=== PATIENT | female | born 1970 | race Caucasian/White ===

== ENCOUNTER → 2017-03-25 | Outpatient (CLI) | payer MEDICAID ==
--- NOTE | 2017-03-25 10:35 | RADIOLOGY REPORT (SQ) ---
EXAM DESCRIPTION: ELBOW RIGHT >2 VIEWS COMPLETED DATE/TIME: 03/25/2017 10:26 am REASON FOR STUDY: PAIN IN RIGHT ELBOW R22.31 LOCALIZED SWELLING, MASS AND LUMP, RIGHT UPPER LIMB M2 5.521 PAIN IN RIGHT ELBOW COMPARISON: None. NUMBER OF VIEWS: Four views. TECHNIQUE: AP, lateral, and both oblique radiographic images acquired of the right elbow. LIMITATIONS: None. FINDINGS: MINERALIZATION: Normal. BONES: No acute fracture or dislocation. No worrisome bone lesions. JOINT: No effusion. SOFT TISSUES: No soft tissue swelling. No foreign body. OTHER: No other significant finding. IMPRESSION: NEGATIVE STUDY OF THE RIGHT ELBOW. NO RADIOGRAPHIC EVIDENCE OF ACUTE INJURY. TECHNICAL DOCUMENTATION: JOB ID: [id number] [employer]- All Rights Reserved
--- NOTE | 2017-03-27 15:44 | WOMENS IMAGING REPORT ---
EXAM DESCRIPTION: BILAT DIAGNOSTIC MAMMO W/CAD COMPLETED DATE/TIME: 03/25/2017 8:40 am REASON FOR STUDY: LOCALIZED SWELLING; R22.31 R22.31 LOCALIZED SWELLING, MASS AND LUMP, RIGHT UPPER LIMB COMPARISON: No outside films are available TECHNIQUE: Standard craniocaudal and mediolateral oblique views of each breast recorded using digita l acquisition. Additional "push-back" craniocaudal and mediolateral oblique images acquired. LIMITATIONS: None. FINDINGS: IMPLANTS: Bilateral subglandular implants. RIGHT BREAST MASSES: No suspicious masses. CALCIFICATIONS: No new or suspicious calcifications. ARCHITECTURAL DISTORTION: None. DEVELOPING DENSITY: None. ASYMMETRY: None noted. OTHER: No other significant findings. LEFT BREAST MASSES: No suspicious masses. CALCIFICATIONS: No new or suspicious calcifications. ARCHITECTURAL DISTORTION: None. DEVELOPING DENSITY: None. ASYMMETRY: None noted. OTHER: No other significant finding. Read with the assistance of CAD: .[facility] - R2 Cenova Version 1.3 .[facility] - R2 Cenova Version 1.3 .[facility] - R2 Cenova Version 2.4 .[facility] - R2 Cenova Version 2.4 .[facility] - R2 Sole Rougher Version 9.2 Patient indicates right breast pain on the intake form. Although no mammographic abnormalities are i dentified, in the setting of breast pain, breast ultrasound should be performed. IMPRESSION: No mammographic evidence for malignancy. Patient indicated right breast pain on her paperwork today. Ultrasound of the right breast in the ar ea pain is recommended for followup. BREAST DENSITY: c. The breasts are heterogeneously dense, which may obscure small masses. BIRAD: 0 Incomplete: Needs additional imaging evaluation with right breast ultrasound RECOMMENDATION: RECOMMENDED FOLLOW UP: Right breast ultrasound in the area of pain SPECIFIC INTERVENTION/IMAGING/CONSULTATION RECOMMENDED:Right breast ultrasound in the area of pain COMMUNICATION:Patient notified by letter. We will call the patient back for additional ultrasound ex am COMMENT: The patient has been notified of the results by letter per MQSA requirements. Additional no tification policies are in place for contacting patient with suspicious or incomplete findings. Quality ID #225: The [employer] recommends an annual screening mammogram for women aged 40 years or over. This facility utilizes a reminder system to ensure that all patients receive reminder letters, and/or direct phone calls for appointments. This includes reminders for routine scr eening mammograms, diagnostic mammograms, or other Breast Imaging Interventions when appropriate. Th is patient will be placed in the appropriate reminder system. The [employer] (ACR) has developed recommendations for screening MRI of the breast s in certain patient populations, to be used in conjunction with mammography. Breast MRI surveillanc e may be appropriate for women with more than 20% lifetime risk of developing breast cancer as deter mined by genetic testing, significant family history of the disease, or history of mantle radiation f or Hodgkins Disease. ACR Practice Guidelines 2008. TECHNICAL DOCUMENTATION: FINDING NUMBER: (1) ASSESSMENT: (1) JOB ID: [id number] [employer]- All Rights Reserved
== END ==
LOC: WI 08:03
PROVIDERS: ATTEND Physician Assistant
DX: M25.521 Pain in right elbow (principal); R22.31 Localized swelling, mass and lump, right upper limb
CPT/HCPCS: 73080; G0204; 77066

== ENCOUNTER → 2017-04-07 | Outpatient (CLI) | payer MEDICAID ==
--- NOTE | 2017-04-07 16:54 | WOMENS IMAGING REPORT ---
EXAM DESCRIPTION: U/S BREAST UNILATERAL, COMPL COMPLETED DATE/TIME: 04/07/2017 2:42 pm REASON FOR STUDY: MASTODYNIA; N64.4 N64.4 MASTODYNIA COMPARISON: Bilateral mammograms 03/25/2017 TECHNIQUE: Real-time and static grayscale imaging performed of the right breast targeted to the area of clinical Concern. Selected color Doppler images recorded. LIMITATIONS: None. FINDINGS: Patient states she has right breast pain in the retroareolar region. She is post multiple right breast surgeries including breast implants with revision, and breast lift with revision. 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 This i s the area of breast pain. Ultrasound of the right breast in the area of scar tissue along the nipple resection was performed. A small 7 mm x 6 mm cyst is present in the 6 o'clock position, probably benign finding with mild ecce ntric cyst wall thickening. Elsewhere in the right retroareolar region, an 8 mm cyst is present, josefa ign. At 10 mm complex cyst with low level internal echoes is also present. No dilated ducts. No wo rrisome acoustic absorption. IMPRESSION: Probably benign findings in the right breast in the area of pain. Several simple and co mplex cysts are present. Short interval follow-up repeat ultrasound in 6 months is recommended to ex clude growth or change BIRAD: 3 Probably benign finding. Initial short-interval follow-up suggested. RECOMMENDATION: RECOMMENDED FOLLOW-UP: Six-month follow-up right breast ultrasound recommended COMMENT: Patient notified by letter The [employer] (ACR) has developed recommendations for screening MRI of the breast s in certain patient populations, to be used in conjunction with mammography. Breast MRI surveillanc e may be appropriate for women with more than 20% lifetime risk of developing breast cancer as deter mined by genetic testing, significant family history of the disease, or history of mantle radiation f or Hodgkins Disease. ACR Practice Guidelines 2008. TECHNICAL DOCUMENTATION: JOB ID: [id number] [employer]- All Rights Reserved
== END ==
LOC: WI 14:09
PROVIDERS: ATTEND Physician Assistant
DX: N64.4 Mastodynia (principal)
CPT/HCPCS: 76641

== ENCOUNTER 2018-04-08 15:38 | Emergency (ER) | payer SELFPAY ==
[2018-04-08 16:09] VITALS: BP 150/86
[2018-04-08] MEDS ORDERED: LIDOCAINE 5% (700 MG) TRANSDERMAL ADH..PATCH TP ONE (17:24)
[2018-04-08] MEDS ORDERED: METHOCARBAMOL 750 MG TABLET PO ONE (17:24)
[2018-04-08] MEDS ORDERED: KETOROLAC TROMETHAMINE 60 MG/2 ML SDV IM ONE (17:24)
--- NOTE | 2018-04-08 17:44 | ER Document Report ---
HPI - HPI Time Seen by Provider: 04/08/18 17:08 Pain Level: 3 Notes: Patient is an otherwise healthy 47-year-old female who presents to the emergency department with complaints of posterior hip pain and right low back pain. Patient denies any fall or injury. 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 Denies any bowel incontinence, reports she is able to urinate without difficulty, denies any saddle anesthesia or fever. Past Medical History - General Information source: Patient - Social History Smoking Status: Never Smoker Family History: Reviewed & Not Pertinent - Medical History Medical History: Negative Surgical Hx: Negative - Immunizations Immunizations up to date: Yes Vertical Provider Document - CONSTITUTIONAL Notes: PHYSICAL EXAMINATION: GENERAL: Well-appearing, well-nourished and in no acute distress. HEAD: Atraumatic, normocephalic. EYES: Pupils equal round extraocular movements intact, conjunctiva are normal. ENT: Nares patent NECK: Normal range of motion LUNGS: No respiratory distress Musculoskeletal: Normal range of motion, tenderness to palpation to lumbar paraspinous muscles on the right side. Pain extends down into the buttock and hip. NEUROLOGICAL: Normal speech, ambulates with steady gait. PSYCH: Normal mood, normal affect. SKIN: Warm, Dry, normal turgor, no rashes or lesions noted. - INFECTION CONTROL TRAVEL OUTSIDE OF THE [place] IN LAST 30 DAYS: No Course - Re-evaluation Re-evalutation: Examination is consistent with musculoskeletal strain. Patient will be treated with muscle relaxers and lidocaine patches. Patient will be instructed to take anti-inflammatories. Patient to follow-up with primary care if not improving over the next several days. - Vital Signs Vital signs: Temp Pulse Resp BP Pulse Ox 97.5 F 66 16 150/86 H 100 04/08/18 16:05 04/08/18 16:05 04/08/18 16:05 04/08/18 16:05 04/08/18 16:05 Discharge - Discharge Clinical Impression: Musculoskeletal pain Condition: Stable Disposition: HOME, SELF-CARE Additional Instructions: Muscle Strain You have strained a muscle -- torn the fibers within the muscle. This often occurs with strenuous exertion, or during an injury that suddenly stretches the muscle. The seriousness of a strain varies. Some strains heal within days, others cause problems for months. X-rays cannot show a muscle strain. X-rays are taken only if symptoms suggest that a fracture could be present. The usual treatment of a muscle strain is rest and ice packs. Sometimes, a sling, splint, or crutches may be necessary to rest the muscle. The muscle can be used again once pain subsides. Severe strains require a special exercise and stretching program to prevent permanent stiffness and disability. Your doctor will advise you if this will be necessary. Call the doctor immediately if pain or swelling becomes severe, or if numbness or discoloration develop. Please take medications as prescribed. Take ibuprofen 600 mg every 6 hours. Call the primary care providers that I have recommended you to below. Try to schedule appointment with them for follow-up. Prescriptions: Lidocaine [Lidoderm 5% (700 mg) Transdermal Patch] 1 patch TP DAILY #30 adh..patch Methocarbamol [Robaxin 750 mg Tablet] 750 mg PO Q6H #40 tablet Referrals: CEFERINO COBB PA-C [Primary Care Provider] - Follow up as needed [facility] [Provider Group] - Follow up as needed [facility] [Provider Group] - Follow up as needed
== END 2018-04-08 17:50 | disposition home or self-care (01) ==
LOC: ER 15:38
DX: M79.10 Myalgia, unspecified site (principal); M25.551 Pain in right hip; M54.5 Low back pain
CPT/HCPCS: 99283; 96372; J1885; J3490

== ENCOUNTER 2020-02-15 17:45 | Emergency (ER) | payer BC ==
--- NOTE | 2020-02-15 18:20 | ER Document Report ---
ED Medical Screen (RME) - General Chief Complaint: Abdominal Pain Stated Complaint: ABDOMINAL PAIN Notes: Patient is a 49-year-old female with a past medical history significant for prior partial hysterectomy with 1 remaining ovary who presents today with complaints of lower abdominal pain that sharp and stabbing. She states is been underlying as a constant ache with intermittent episodes of sharp stabbing pains. Seems to worsen with straining for bowel movements or urination. States she is never had anything similar. Denies any nausea or vomiting. No fevers. Reports multiple sections in her history. Denies any fullness in the vagina or bladder area. I have treated and performed a rapid initial assessment of this patient. A comprehensive ED assessment and evaluation of the patient, analysis of test results and completion of medical decision making process will be conducted by additional ED providers. PHYSICAL EXAMINATION: GENERAL: Well-appearing, well-nourished and in no acute distress. A&Ox4. Answers questions appropriately. TRAVEL OUTSIDE OF THE [place] IN LAST 30 DAYS: No - Related Data Allergies/Adverse Reactions: penicillin V Allergy (Mild, Verified 04/08/18 17:09) sulfamethoxazole [From Bactrim] Allergy (Unknown, Verified 04/08/18 17:09) trimethoprim [From Bactrim] Allergy (Unknown, Verified 04/08/18 17:09) Past Medical History Renal/ Medical History: Denies: Hx Peritoneal Dialysis Past Surgical History: Reports: Hx Section, Hx Hysterectomy, Hx Orthopedic Surgery, Hx Tonsillectomy - Immunizations Immunizations up to date: Yes
[2020-02-15 18:53] LABS: ABSOLUTE BASOPHILS # (AUTO) 0.1 10^3/uL (0.0-0.2); ABSOLUTE EOSINOPHILS # (AUTO) 0.1 10^3/uL (0.0-0.6); ABSOLUTE LYMPHOCYTES (AUTO) 1.9 10^3/uL (0.5-4.7); ABSOLUTE MONOCYTES (AUTO) 0.6 10^3/uL (0.1-1.4); ABSOLUTE NEUT (AUTO) 4.1 10^3/uL (1.7-8.2); BASOPHILS % (AUTO) 0.8 % (0-2); EOSINOPHILS % (AUTO) 2.2 % (0-6); HEMATOCRIT 36.8 % (36.0-47.0); HEMOGLOBIN 12.7 g/dL (12.0-15.5); LYMPHOCYTES % (AUTO) 28.1 % (13-45); MEAN CORPUSCULAR HEMOGLOBIN 28.5 pg (27.0-33.4); MEAN CORPUSCULAR HGB CONC 34.5 g/dL (32.0-36.0); MEAN CORPUSCULAR VOLUME 83 fl (80-97); MONOCYTES % (AUTO) 8.5 % (3-13); PLATELET COUNT 321 10^3/uL (150-450); RED BLOOD COUNT 4.46 10^6/uL (3.72-5.28); SEGMENTED NEUTROPHILS % (AUTO) 60.4 % (42-78); TOTAL CELLS COUNTED % (AUTO) 100 %; WHITE BLOOD COUNT 6.8 10^3/uL (4.0-10.5)
[2020-02-15 19:19] LABS: ALBUMIN 4.7 g/dL (3.5-5.0); ALKALINE PHOSPHATASE 92 U/L (38-126); ANION GAP 10 (5-19); ASPARTATE AMINO TRANSFERASE 20 U/L (14-36); BILIRUBIN,DIRECT 0.3 mg/dL (0.0-0.4); BILIRUBIN,TOTAL 0.4 mg/dL (0.2-1.3); BLOOD UREA NITROGEN 9 mg/dL (7-20); CALCIUM 9.9 mg/dL (8.4-10.2); CARBON DIOXIDE 25 mmol/L (22-30); CHLORIDE 107 mmol/L (98-107); GLUCOSE 107 mg/dL (75-110); POTASSIUM 3.8 mmol/L (3.6-5.0); TOTAL PROTEIN 7.7 g/dL (6.3-8.2)
[2020-02-15 22:11] LABS: APPEARANCE,URINE CLEAR; BILIRUBIN,URINE NEGATIVE (NEGATIVE); COLOR,URINE YELLOW; GLUCOSE, URINE NEGATIVE (NEGATIVE); KETONES,URINE NEGATIVE (NEGATIVE); PROTEIN,URINE NEGATIVE (NEGATIVE); URINE SPECIFIC GRAVITY 1.012; UROBILINOGEN,URINE NEGATIVE mg/dL (<2.0)
--- NOTE | 2020-02-15 22:36 | RADIOLOGY REPORT (SQ) ---
CLINICAL INDICATION: lower abd pain. . TECHNIQUE: Contrast enhanced spiral axial CT imaging was obtained of the abdomen and pelvis with multiplanar reconstructions. This exam was performed according to our departmental dose-optimization program, which includes automated exposure control, adjustment of the mA and/or kV according to patient size and/or use of iterative reconstruction techniques. Additional delayed phase imaging COMPARISON: None. CORRELATION: None. FINDINGS: Abdomen: The lung bases are grossly clear. The heart is of normal size. No evidence of pleural or pericardial fluid. The liver is homogeneous. The gallbladder is nondistended without inflammatory change. The pancreas is unremarkable. The spleen is unremarkable. The adrenals are unremarkable. The kidneys appear grossly normal without evidence of urolithiasis or hydronephrosis. There is no evidence of free air. No free fluid. No bulky adenopathy. Abdominal aorta is nonaneurysmal. Pelvis: The bowel is nonobstructed. The bowel is unopacified with oral contrast. Pelvic contents are unremarkable. The appendix appears be surgically absent. Diverticulosis of the left and sigmoid colon. Acute on, gated diverticulitis of the sigmoid colon.. 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 IMPRESSION: Acute uncomplicated diverticulitis of the sigmoid colon.
[2020-02-16] MEDS ORDERED: CIPROFLOXACIN HCL 500 MG TABLET PO ONE (00:45)
[2020-02-16] MEDS ORDERED: METRONIDAZOLE 500 MG TABLET PO ONE (00:45)
[2020-02-16] MEDS ORDERED: HYDROCODONE/ACETAMINOPHEN 5-325 MG TABLET PO ONE (00:48)
--- NOTE | 2020-02-16 00:48 | ER Document Report ---
ED General - General Chief Complaint: Abdominal Pain Stated Complaint: ABDOMINAL PAIN Time Seen by Provider: 02/16/20 00:42 Mode of Arrival: Ambulatory Information source: Patient Notes: Patient is a 49-year-old healthy female with lower abdominal pain. Does not have a fever. Does have occasional chills. No nausea vomiting or diarrhea. TRAVEL OUTSIDE OF THE [place] IN LAST 30 DAYS: No - Related Data Allergies/Adverse Reactions: penicillin V Allergy (Mild, Verified 04/08/18 17:09) sulfamethoxazole [From Bactrim] Allergy (Unknown, Verified 04/08/18 17:09) trimethoprim [From Bactrim] Allergy (Unknown, Verified 04/08/18 17:09) Past Medical History - Social History Smoking Status: Never Smoker Family History: Reviewed & Not Pertinent Renal/ Medical History: Denies: Hx Peritoneal Dialysis Past Surgical History: Reports: Hx Section, Hx Hysterectomy, Hx Orthopedic Surgery, Hx Tonsillectomy - Immunizations Immunizations up to date: Yes Review of Systems - Review of Systems Notes: Constitutional: No fevers. +chills. EENT: No eye redness. No eye pain. No ear pain. No sore throat. Cardiovascular: No chest pain. No palpitations. Respiratory: No cough. No shortness of breath. No respiratory distress. Gastrointestinal: +abdominal pain. No nausea, vomiting, or diarrhea. Genitourinary: Atraumatic. No lesions. No pain. No discharge. Musculoskeletal: Atraumatic. No swelling. No deformities. Skin: No rash or lesions. Lymphatic: No swollen lymph nodes. Neurologic: No headache. No syncope. Psychiatric: No suicidal or homicidal ideation. Physical Exam - Vital signs Vitals: Temp Pulse Resp BP Pulse Ox 98.2 F 84 18 157/92 H 99 02/15/20 18:20 02/15/20 18:20 02/15/20 18:20 02/15/20 18:20 02/15/20 18:20 - Notes Notes: General: Well-developed, well-nourished. In no acute distress. Non-toxic appearing. Cardiac: Well-perfused. Regular rate and rhythm. No murmurs, rubs, or gallops. Pulmonary: No respiratory distress. No cyanosis. Bilateral lung solo are clear to auscultation. Abdominal: Non-distended. Non-rigid. Bowels sounds are present in all four quadrants. No guarding or rebound. Tenderness to mid lower abdomen. No guarding or rebound. No CVA tenderness HEENT: Head is atraumatic. Conjunctivae not reddened. No tearing. PERRL. EOMI. Orbits atraumatic. No periorbital swelling or erythema. Oropharynx is without erythema, swelling, or exudates. Neck: Supple. No adenopathy. No meningismus. Dermatologic: Warm with good turgor. No rash. Atraumatic. Chest: Atraumatic. No chest wall tenderness to palpation. Musculoskeletal: Moves all extremities well. No range of motion deficits. no muscular or joint tenderness. No paraspinal muscle tenderness. no midline spinal tenderness or step-off. Genitourinary: Examination deferred Neurologic: No gross neurologic deficits. Psychiatric: Normal mood. Course - Re-evaluation Re-evalutation: 02/16/20 00:44 Patient was evaluated in [facility]. Appropriate labs were ordered. These are all normal. CT scan shows uncomplicated diverticulitis. Patient is amenable to go home on oral medications. We will give her a dose of pain medicine as well as her first dose of Cipro and Flagyl tonight. She can fill the rest of her antibiotics tomorrow. - Vital Signs Vital signs: Temp Pulse Resp BP Pulse Ox 98.1 F 78 16 152/85 H 100 02/16/20 00:21 02/16/20 00:21 02/16/20 00:21 02/16/20 00:21 02/16/20 00:21 - Laboratory Result Diagrams: 02/15/20 18:35 02/15/20 18:35 Discharge - Discharge Clinical Impression: Acute diverticulitis, Elevated blood pressure reading Condition: Good Disposition: HOME, SELF-CARE Instructions: Diverticulitis ([facility]), Low Residue Diet ([facility]), Ciprofloxacin ([facility]), Metronidazole ([facility]) Additional Instructions: Do not consume alcohol of any form while taking metronidazole. Take all medications as directed. Please take note of the dietary recommendations associated with diverticulitis. Return to the emergency department anytime if your pain worsens, if you develop nausea and vomiting, if you develop fever, or if generally you feel worse than when you started. Prescriptions: Dicyclomine HCl [Bentyl 20 mg Tablet] 20 mg PO Q6HP PRN #12 tablet PRN Reason: Ciprofloxacin HCl [Cipro 500 mg Tablet] 500 mg PO BID #20 tablet Metronidazole [Flagyl 500 mg Tablet] 500 mg PO Q8H #30 tablet
[2020-02-16 01:13] VITALS: BP 148/72
== END 2020-02-16 01:12 | disposition home or self-care (01) ==
LOC: ER 17:45
DX: K57.92 Diverticulitis of intestine, part unspecified, without perforation or abscess without bleeding (principal); R03.0 Elevated blood-pressure reading, without diagnosis of hypertension; R10.30 Lower abdominal pain, unspecified; R68.83 Chills (without fever); Z88.0 Allergy status to penicillin; Z88.3 Allergy status to other anti-infective agents; Z90.710 Acquired absence of both cervix and uterus
CPT/HCPCS: 36415; 74177; 80053; 81001; 83690; 85025; 99284